=== PATIENT | female | born 1995 | race Caucasian/White ===

== ENCOUNTER 2023-07-31 16:52 | Observation (INO) | payer BC ==
[~2023-07-31] VITALS: Ht 167.6 cm; Wt 106.6 kg
[2023-07-31] MEDS ORDERED: FERR325E14 PO (17:48)
[2023-07-31] MEDS ORDERED: PREN-543 PO (17:48)
[2023-07-31] MEDS ORDERED: DOCU-2 PO (17:48)
[2023-07-31 18:43] VITALS: BP 125/69; PULSE 88; RESP 18; TEMP 97.7
== END 2023-07-31 19:19 | disposition home or self-care (01) ==
LOC: MLD 16:52
PROVIDERS: ADMIT Obstetrics & Gynecology; ATTEND Obstetrics & Gynecology
DX: O36.8130 Decreased fetal movements, third trimester, not applicable or unspecified (principal); Z3A.37 37 weeks gestation of pregnancy
CPT/HCPCS: 59025; 76819; 81000; G0378; Q0092